=== PATIENT | male | born 1975 | race Caucasian/White ===

== ENCOUNTER 2021-05-02 23:46 | Emergency (ER) | payer BC ==
--- NOTE | 2021-05-03 02:54 | ED Physician Documentation ---
History of Present Illness - Stated complaint Stated Complaint: SOA,NUMB FEET - Chief complaint Chief Complaint: General - History obtained from History obtained from: Patient - Additonal information Additional information: 45-year-old man, previously healthy presents with COVID-19 diagnosis via home test on Saturday with cough, sore throat. Patient is unvaccinated against COVID- 19.Patient had acute shortness of breath this evening with associated numbness, dizziness, tingling and dry mouth. It lasted for several moments and is resolved in the emergency department. Denies chest pain, shortness of breath. Cough is nonproductive. +chills and subjective fever Review of Systems Ten Systems: 10 systems reviewed and negative Constitutional: reports: Fever, Chills, Myalgias, Fatigue Cardiac: reports: Palpitations. denies: Chest pain / pressure Respiratory: reports: Cough. denies: Dyspnea PD PAST MEDICAL HISTORY - Past Medical History Past Medical History: No - Past Surgical History Past Surgical History: No - Present Medications Home Medications: Ambulatory Orders Medication Instructions Recorded Confirmed No Known Home Medications 05/02/21 05/02/21 - Allergies Allergies/Adverse Reactions: Allergies Allergy/AdvReac Type Severity Reaction Status Date / Time No Known Drug Allergies Allergy Verified 05/02/21 23:59 - Social History Does the pt smoke?: Yes Smoking Status: Current every day smoker Does the pt drink ETOH?: Yes Does the pt have substance abuse?: No - Immunizations Immunizations are current?: No Immunizations: TDAP >10years/unknown PD ED PE NORMAL - Vitals Vital signs reviewed: Yes - General General: Alert and oriented X 3, No acute distress, Well developed/nourished - HEENT HEENT: Atraumatic, PERRL, EOMI, Moist mucous membranes, Pharynx benign - Neck Neck: Supple, no meningeal sign - Cardiac Cardiac: RRR - Respiratory Respiratory: No respiratory distress, Clear bilaterally - Abdomen Abdomen: Non tender, Non distended - Derm Derm: Normal color, Warm and dry - Extremities Extremities: No deformity, No edema - Neuro Neuro: Alert and oriented X 3, No motor deficit, No sensory deficit - Psych Psych: Normal mood, Normal affect Results - Vitals Vitals: Vital Signs - 24 hr 05/02/21 05/03/21 23:55 01:32 Temperature 36.5 C Heart Rate 103 H 95 Respiratory 22 21 Rate Blood Pressure 154/87 H 132/93 H O2 Saturation 96 98 Oxygen O2 Source Room air PD MEDICAL DECISION MAKING - ED course ED course: 45-year-old male presents with COVID-19 and acute shortness of breath this evening that has since resolved. Patient is well-appearing with normal vital signs and exam. Return precautions given. Patient will follow up with [facility]. Departure - Departure Disposition: 01 Home, Self Care Clinical Impression: COVID-19, Shortness of breath, Numbness, Tingling, Dry mouth Condition: Stable Instructions: COVID-19 [facility], COVID-19 [facility] Department Statement Comments: You were seen in the emergency department for medical evaluation. Your EKG, vital signs, and physical exam were normal. Please return if you have new or worsening symptoms. Stay home and quarantine until your symptoms resolve. Follow up with stefano centeno in clinic at [address] [facility] in [place].
[2021-05-03 03:03] VITALS: BP 133/91
== END 2021-05-03 03:03 | disposition home or self-care (01) ==
LOC: ED 23:46
DX: U07.1 COVID-19 (principal); R20.0 Anesthesia of skin; R68.2 Dry mouth, unspecified; F17.200 Nicotine dependence, unspecified, uncomplicated
CPT/HCPCS: 93005; 99283